=== PATIENT | female | born 1955 | race Caucasian/White ===

== ENCOUNTER 2016-07-29 07:16 | Day surgery (SDC) | payer OTHER ==
[~2016-07-29 07:16] MED LIST: KETOROLAC TROMETHAMINE 0.45% 4 DROP/0.4 ML DROPERETTE OD PRN
[2016-07-29] MEDS: TETRACAINE HCL 0.5% OPH SOLN 2 ML OD PRN ×3 (07:55→08:35)
[2016-07-29] MEDS: TROPICAMIDE 1% OPH SOLN 3 ML OD PRN ×4 (07:55→08:15)
[2016-07-29] MEDS: BESIFLOXACIN HCL 0.6% OPH SUSP 5 ML BOTTLE OD PRN ×3 (07:56→08:06)
[2016-07-29] MEDS ORDERED: LIDOCAINE 1% INJ-PF (10 MG/ML) 30 ML SDV ONE (07:59)
[2016-07-29] MEDS ORDERED: EPINEPHRINE INJ/PF 1 MG/1 ML AMPULE ONE (07:59)
[2016-07-29] MEDS ORDERED: CHONDR SU A NA/HYALUR INTRAOC KIT (SURGICARE) ONE (07:59)
[2016-07-29] MEDS: CYCLOPENTOLATE 0.2%/PHENYLEPHRINE 1% OPH SOLN 2 ML OD PRN ×2 (08:05→08:15)
[2016-07-29] MEDS ORDERED: MIDAZOLAM 2 MG/2 ML INJ ONE (08:11)
--- NOTE | 2016-08-02 11:59 | [facility] OPERATIVE REPORT E ---
[facility] Operative Report NAME: ROYCE KENNEDY AGE: 61Y DATE OF SURGERY: 07/29/2016 ROOM: PREOPERATIVE DIAGNOSIS: CATARACT, RIGHT EYE. POSTOPERATIVE DIAGNOSIS: CATARACT, RIGHT EYE. OPERATION: Cataract extraction with intraocular lens implant of the right eye. SURGEON: JANICE BIRMINGHAM M.D. ANESTHESIA: Topical. PROCEDURE: PROCEDURE: After obtaining appropriate consent, the patient's right eye was prepped and draped in sterile fashion as well as the surgeon in a sterile manner and cataract surgery was started. First a paracentesis blade was used to make a small side-port incision. Viscoelastic was used to inflate the anterior chamber. Next a 2.4 mm incision was made with the paracentesis blade. A continuous capsulorrhexis incision was made using a cystotome and Utrata forceps. Following this hydrodissection was carried out to make the lens fully loose and mobile and it was rotated 90 degrees. Following this, a rgdkvk-ros-idjjcfr technique was used to phacoemulsify the lens with a CDE of 3.74. The remaining cortex was removed with irrigation/aspiration. Provisc was instilled into the capsular bag to inflate the bag. A SN60WF, 16.5 diopter lens was placed. The remaining viscoelastic material was removed with irrigation/aspiration. Following this, a 10-0 Nylon suture was used to close the incision and it was found to be watertight. Vigamox was instilled in the eye and a protective shield was placed over the eye. The patient returned to the postoperative recovery in stable condition. DICTATING PHYSICIAN: JANICE BIRMINGHAM M.D. 1265M 1150 PHY#: [id number] ID: [id number] JOB#: [id number] ACCT: [id number] cc:JANICE BIRMINGHAM M.D. >
--- NOTE | 2016-08-02 17:24 | [facility] DISCHARGE SUMMARY E ---
[facility] Discharge Summary NAME: ROYCE KENNEDY AGE: 61Y ADMITTED: 07/29/2016 DISCHARGED: 07/29/2016 HISTORY: This is a 61-year-old female who underwent cataract extraction of the right eye. DIAGNOSIS: CATARACT, RIGHT EYE. INDICATIONS: She underwent surgery because she was having trouble reading road signs and words on the TV. DISCHARGE INSTRUCTIONS: She should be on a regular diet; no bending at her waist; no heavy lifting; she is to use her Besivance, Ilevro and Durezol at 3:00 p.m. and 8:00 p.m.; and sleep with a rigid shield. PLAN: I will see her for her 1-day postoperative tomorrow. DICTATING PHYSICIAN: JANICE BIRMINGHAM M.D. 1265M 1157 PHY#: [id number] ID: [id number] JOB#: [id number] ACCT: [id number] cc:JANICE BIRMINGHAM M.D. >
== END 2016-07-29 09:39 | disposition home or self-care (01) ==
LOC: SC 07:16
PROVIDERS: ATTEND Internal Medicine
PROC: 08RJ3JZ Replacement of Right Lens with Synthetic Substitute, Percutaneous Approach (ICD-10-PCS; principal; 2016-07-29 08:30)
DX: H25.813 Combined forms of age-related cataract, bilateral (principal); H04.123 Dry eye syndrome of bilateral lacrimal glands; H52.4 Presbyopia; M19.90 Unspecified osteoarthritis, unspecified site; Z79.1 Long term (current) use of non-steroidal anti-inflammatories (NSAID); Z79.82 Long term (current) use of aspirin
CPT/HCPCS: 66984; V2632; J2250; J3490 ×2; J0171; 142

== ENCOUNTER 2016-09-02 06:49 | Day surgery (SDC) | payer OTHER ==
[~2016-09-02 06:49] MED LIST changes: -KETOROLAC TROMETHAMINE 0.45% 4 DROP/0.4 ML DROPERETTE OD PRN; +KETOROLAC TROMETHAMINE 0.45% 4 DROP/0.4 ML DROPERETTE OS PRN
[2016-09-02] MEDS: TETRACAINE HCL 0.5% OPH SOLN 2 ML OS PRN ×3 (07:06→07:47)
[2016-09-02] MEDS: TROPICAMIDE 1% OPH SOLN 3 ML OS PRN ×3 (07:07→07:32)
[2016-09-02] MEDS: CYCLOPENTOLATE 0.2%/PHENYLEPHRINE 1% OPH SOLN 2 ML OS PRN ×3 (07:08→07:33)
[2016-09-02] MEDS: BESIFLOXACIN HCL 0.6% OPH SUSP 5 ML BOTTLE OS PRN ×3 (07:09→08:09)
[2016-09-02] MEDS ORDERED: CHONDR SU A NA/HYALUR INTRAOC KIT (SURGICARE) ONE (07:16)
[2016-09-02] MEDS ORDERED: EPINEPHRINE INJ/PF 1 MG/1 ML AMPULE ONE (07:16)
[2016-09-02] MEDS ORDERED: LIDOCAINE 1% INJ-PF (10 MG/ML) 30 ML SDV ONE (07:16)
[2016-09-02] MEDS ORDERED: MIDAZOLAM 2 MG/2 ML INJ ONE (07:22)
--- NOTE | 2016-09-24 12:08 | [facility] OPERATIVE REPORT E ---
[facility] Operative Report NAME: ROYCE KENNEDY AGE: 61Y DATE OF SURGERY: 09/02/2016 ROOM: PREOPERATIVE DIAGNOSIS: CATARACT, LEFT EYE. POSTOPERATIVE DIAGNOSIS: CATARACT, LEFT EYE. OPERATION: Cataract extraction with intraocular lens implant of the left eye. SURGEON: JANICE BIRMINGHAM M.D. ANESTHESIA: Topical. PROCEDURE: After obtaining appropriate consent, the patient's left eye was prepped and draped in sterile fashion as well as the surgeon in a sterile manner and cataract surgery was started. First a paracentesis blade was used to make a small side-port incision. Viscoelastic was used to inflate the anterior chamber. Next a 2.4 mm incision was made with the paracentesis blade. A continuous capsulorrhexis incision was made using a cystotome and Utrata forceps. Following this hydrodissection was carried out to make the lens fully loose and mobile and it was rotated 90 degrees. Following this, a vuemep-vtq-qlxqsmo technique was used to phacoemulsify the lens with a CDE of 6.79. The remaining cortex was removed with irrigation/aspiration. Provisc was instilled into the capsular bag to inflate the bag. A SN60WF, 17.5 diopter lens was placed. The remaining viscoelastic material was removed with irrigation/aspiration. Following this, a 10-0 nylon suture was used to close the incision and it was found to be watertight. Vigamox was instilled in the eye and a protective shield was placed over the eye. The patient returned to the postoperative recovery in stable condition. DICTATING PHYSICIAN: JANICE BIRMINGHAM M.D. 1211M 1204 PHY#: [id number] ID: [id number] JOB#: [id number] ACCT: [id number] cc:JANICE BIRMINGHAM M.D. >
--- NOTE | 2016-09-24 12:12 | [facility] DISCHARGE SUMMARY E ---
[facility] Discharge Summary NAME: ROYCE KENNEDY AGE: 61Y ADMITTED: 09/02/2016 DISCHARGED: 09/02/2016 HOSPITAL COURSE: This is a 61-year-old female who underwent cataract extraction of the left eye. DIAGNOSIS: Cataract, left eye. INDICATIONS: She underwent surgery because she was imbalance between eyes since having her surgery on her right eye and having glare and difficulties in the left eye with headlights. DISCHARGE INSTRUCTIONS: She should be on a regular diet. No bending at her waist. No heavy lifting. She should use her Besivance, Ilevro, and Durezol at 3 p.m. and 8 p.m. and sleep with a rigid shield. I will see her for her 1 day postoperative tomorrow. DICTATING PHYSICIAN: JANICE BIRMINGHAM M.D. 1211M 1205 PHY#: [id number] ID: [id number] JOB#: [id number] ACCT: [id number] cc:JANICE BIRMINGHAM M.D. >
== END 2016-09-02 08:44 | disposition home or self-care (01) ==
LOC: SC 06:49
PROVIDERS: ATTEND Internal Medicine
PROC: 08RK3JZ Replacement of Left Lens with Synthetic Substitute, Percutaneous Approach (ICD-10-PCS; principal; 2016-09-02 08:00)
DX: H25.812 Combined forms of age-related cataract, left eye (principal); Z96.1 Presence of intraocular lens; M19.90 Unspecified osteoarthritis, unspecified site; Z79.82 Long term (current) use of aspirin; Z79.1 Long term (current) use of non-steroidal anti-inflammatories (NSAID)
CPT/HCPCS: 66984; V2632; J2250; J3490 ×2; J0171; 142